=== PATIENT | female | born 1975 | race Caucasian/White ===

== ENCOUNTER 2017-04-04 22:48 | Emergency (ER) | payer OTHER ==
[2017-04-04 23:02] VITALS: BP 136/73
[2017-04-05 00:04] LABS: BILIRUBIN,URINE NEGATIVE (NEGATIVE); GLUCOSE, URINE (UA) >=1000 mg/dL (NEGATIVE); KETONES,URINE (UA) NEGATIVE (NEGATIVE); LEUKOCYTE ESTERASE, URINE NEGATIVE (NEGATIVE); NITRITE,URINE NEGATIVE (NEGATIVE); OCCULT BLOOD,URINE MODERATE (NEGATIVE); PH,URINE 6.5 PH (5.0-7.5); PROTEIN,URINE NEGATIVE (NEGATIVE); UROBILINOGEN,URINE 0.2 (NORMAL) E.U./dL (NORMAL)
[2017-04-05 00:06] LABS: CLARITY,URINE HAZY (CLEAR); HCG UR QUAL NEGATIVE
[2017-04-05] MEDS ORDERED: ONDANSETRON ODT 4 MG TABLET TL STA (00:13)
[2017-04-05] MEDS ORDERED: PHENAZOPYRIDINE 100 MG TABLET PO STA (00:13)
[2017-04-05] MEDS ORDERED: SULFAMETH/TRIMETH DS 800/160 MG TABLET PO STA (00:13)
[2017-04-05] MEDS ORDERED: ACETAMINOPHEN 500 MG TABLET PO STA (00:13)
[2017-04-05 00:14] LABS: BACTERIA,URINE Few /HPF (None Seen); SQUAMOUS EPITHELIAL CELL,UR RARE Squamous (<= Few)
--- NOTE | 2017-04-05 00:14 | ED Physician Documentation ---
PD HPI FEMALE - Stated complaint Stated Complaint: ABD/BACK PAIN - Chief complaint Chief Complaint: Abd Pain - History obtained from History obtained from: Patient - History of Present Illness Timing - onset: Yesterday Timing - details: Gradual onset, Still present Associated symptoms: Back pain, Dysuria, Urinary frequency. No: Fever Similar symptoms before: Treatment Recently seen: Not recently seen - Additional information Additional information: Patient is a 42 year old female with a history of diabetes who is presenting to the emergency department for dysuria, increased frequency and back pain. patient states that the symptoms have been developing over the last couple of days. patient states that she does not know who her assigned doctor is and that it would be a couple of weeks before she could get an appointment so she came in for evaluation. Review of Systems Constitutional: denies: Fever, Chills Eyes: reports: Reviewed and negative Ears: reports: Reviewed and negative Nose: reports: Reviewed and negative Throat: reports: Sore throat Cardiac: reports: Reviewed and negative GI: reports: Abdominal Pain, Nausea. 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/Adenoidectomy - Present Medications Home Medications: Ambulatory Orders Medication Instructions Recorded Confirmed Fluticasone [Flonase] 1 sprays CHRIS DAILY #1 bottle 07/22/13 09/03/14 Insulin 70/30 Human [NovoLIN] 15 units SUBQ BID 07/22/13 09/03/14 Insulin NPH Human Isophane 20 units SUBQ BID 07/22/13 09/03/14 [Humulin N Kwikpen] Tobramycin/Dexamethasone [Tobradex 1 drop OP QID #1 bot 09/03/14 Eye Drops] Ondansetron Odt [Zofran] 4 mg TL Q6H PRN #14 tablet 04/05/17 Phenazopyridine HCl [Pyridium] 200 mg PO TID PRN #6 tablet 04/05/17 Sulfamethox/Trimeth 800/160 1 each PO BID #14 tablet 04/05/17 [Bactrim Ds 800/160] - Allergies Allergies/Adverse Reactions: Allergies Allergy/AdvReac Type Severity Reaction Status Date / Time meperidine HCl * Allergy Nausea Verified 07/22/13 18:36 [From Demerol] - Social History Does the pt smoke?: No Smoking Status: Never smoker Does the pt drink ETOH?: Yes Does the pt have substance abuse?: No - Immunizations Immunizations are current?: Yes - POLST Patient has POLST: No PD ED PE NORMAL - Vitals Vital signs reviewed: Yes - General General: Alert and oriented X 3, No acute distress - HEENT HEENT: Atraumatic, Moist mucous membranes - Neck Neck: Supple, no meningeal sign - Cardiac Cardiac: RRR, No murmur - Respiratory Respiratory: No respiratory distress - Abdomen Abdomen: Soft, Non tender, Non distended - Derm Derm: Normal color, Warm and dry, No rash - Extremities Extremities: No deformity - Neuro Neuro: Alert and oriented X 3, No motor deficit, Normal speech Results - Vitals Vitals: Vital Signs - 24 hr 04/04/17 22:57 Temperature 36.3 C L Heart Rate 95 Respiratory 16 Rate Blood Pressure 136/73 H O2 Saturation 98 Oxygen O2 Source Room air - Labs Labs: Laboratory Tests 04/04/17 23:16 Urine Color YELLOW Urine Clarity HAZY Urine pH 6.5 Ur Specific [place] 1.015 Urine Protein NEGATIVE Urine Glucose (UA) >=1000 H Urine Ketones NEGATIVE Urine Occult Blood MODERATE H Urine Nitrite NEGATIVE Urine Bilirubin NEGATIVE Urine Urobilinogen 0.2 (NORMAL) Ur Leukocyte Esterase NEGATIVE Urine RBC 6-10 H Urine WBC 11-25 H Ur Squamous Epith Cells RARE Squamous Urine Bacteria Few Ur Microscopic Review INDICATED Urine Culture Comments INDICATED Urine HCG, Qual NEGATIVE PD MEDICAL DECISION MAKING - ED course Complexity details: reviewed old records, reviewed results, re-evaluated patient , considered differential, d/w patient ED course: Patient was seen and examined at bedside. Patient's urine was collected and consistent with a uti. Patient was treated with tylenol, pyridium and bactrim. patient was able to tolerate PO without any difficulty and was appropriate for outpatient treatment. patient was stable for discharge. Departure - Departure Disposition: 01 Home, Self Care Clinical Impression: Urinary tract infection Condition: Good Instructions: ED UTI Cystitis Female Follow-Up: primary,care provider [Other] - As Needed Prescriptions: Ondansetron Odt [Zofran] 4 mg TL Q6H PRN #14 tablet PRN Reason: Nausea / Vomiting Phenazopyridine HCl [Pyridium] 200 mg PO TID PRN #6 tablet PRN Reason: dysuria Sulfamethox/Trimeth 800/160 [Bactrim Ds 800/160] 1 each PO BID #14 tablet Comments: Your symptoms today are being caused by a urinary tract infection. You had your first dose of antibiotics tonight and will need to be on them for the next week. You should stay well hydrated. You should follow up with your pmd if your symptoms persist. You may return to the emergency department at any time for new, worsening or uncontrollable symptoms. Discharge Date/Time: 04/05/17 00:26
== END 2017-04-05 00:26 | disposition home or self-care (01) ==
LOC: ED 22:48
DX: N39.0 Urinary tract infection, site not specified (principal); E11.9 Type 2 diabetes mellitus without complications; Z79.4 Long term (current) use of insulin
CPT/HCPCS: 81001; 81025; 87077; 87086; 87181; 99283; A9270; Q0162; 81003

== ENCOUNTER 2018-08-20 10:13 | Emergency (ER) | payer OTHER ==
[2018-08-20 10:20] VITALS: BP 124/84
--- NOTE | 2018-08-20 10:29 | ED Physician Documentation ---
History of Present Illness - Stated complaint Stated Complaint: UTI symptoms - Chief complaint Chief Complaint: UTI - History obtained from History obtained from: Patient - Additonal information Additional information: Patient is [id number] female with history of insulin-dependent diabetes presenting with concerns for possible UTI. Patient reports she has had UTIs in the past and today's symptoms are similar, specifically dysuria, nausea without vomiting, and diarrhea. Patient denies hematuria, fever, abdominal pain, back pain, or other vaginal complaints. Patient does note that her sugars were elevated earlier today which she feels is reflective of a possible infection. No other improving or worsening factors noted. Review of Systems Constitutional: denies: Fever GI: reports: Nausea. 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: Tonsil/Adenoidectomy - Present Medications Home Medications: Ambulatory Orders Medication Instructions Recorded Confirmed Fluticasone [Flonase] 1 sprays CHRIS DAILY #1 bottle 07/22/13 09/03/14 Insulin 70/30 Human [NovoLIN] 15 units SUBQ BID 07/22/13 09/03/14 Insulin NPH Human Isophane 20 units SUBQ BID 07/22/13 09/03/14 [Humulin N Kwikpen] Tobramycin/Dexamethasone [Tobradex 1 drop OP QID #1 bot 09/03/14 Eye Drops] Ondansetron Odt [Zofran] 4 mg TL Q6H PRN #14 tablet 04/05/17 Phenazopyridine HCl [Pyridium] 200 mg PO TID PRN #6 tablet 04/05/17 Sulfamethox/Trimeth 800/160 1 each PO BID #14 tablet 04/05/17 [Bactrim Ds 800/160] Ciprofloxacin HCl [Cipro] 500 mg PO BID #14 tablet 08/20/18 - Allergies Allergies/Adverse Reactions: Allergies Allergy/AdvReac Type Severity Reaction Status Date / Time meperidine HCl * Allergy Nausea Verified 08/20/18 10:20 [From Demerol] - Social History Does the pt smoke?: No Smoking Status: Never smoker Does the pt drink ETOH?: Yes Does the pt have substance abuse?: No - Immunizations Immunizations are current?: Yes - POLST Patient has POLST: No PD ED PE NORMAL - Vitals Vital signs reviewed: Yes - General General: Alert and oriented X 3, No acute distress, Well developed/nourished - Respiratory Respiratory: No respiratory distress - Abdomen Abdomen: Soft, Non tender, Non distended - Back Back: No CVA TTP - Derm Derm: Normal color, Warm and dry, No rash - Extremities Extremities: No deformity, No tenderness to palpate - Neuro Neuro: Alert and oriented X 3, No motor deficit, No sensory deficit - Psych Psych: Normal mood, Normal affect Results - Vitals Vitals: Vital Signs - 24 hr 08/20/18 10:19 Temperature 36.7 C Heart Rate 100 Respiratory 17 Rate Blood Pressure 124/84 H O2 Saturation 100 Oxygen O2 Source Room air - Labs Labs: Laboratory Tests 08/20/18 08/20/18 10:24 10:25 Urine Color YELLOW Urine Clarity HAZY Urine pH 5.5 Ur Specific [place] <1.005 <=1.005 Urine Protein NEGATIVE Urine Glucose (UA) >=1000 H Urine Ketones 40 H Urine Occult Blood TRACE-INTA Urine Nitrite NEGATIVE Urine Bilirubin NEGATIVE Urine Urobilinogen 0.2 (NORMAL) Ur Leukocyte Esterase TRACE H Urine RBC 3 Urine WBC >25 H Urine WBC Clumps PRESENT Ur Squamous Epith Cells RARE Squamous Urine Bacteria Moderate H Ur Microscopic Review INDICATED Urine Culture Comments INDICATED Urine HCG, Qual NEGATIVE PD MEDICAL DECISION MAKING - ED course Complexity details: reviewed results, considered differential, d/w patient ED course: Patient presenting with UTI symptoms. Do not find evidence on exam or per patient report concerns for nephrolithiasis, pyelonephritis, or other intra-abdominal pathology. Also have low suspicion for pelvic pathology, but considered. Urinalysis obtained which did reflect evidence of infection and patient started on oral antibiotics. Provided information on strict return precautions, other supportive cares, and follow-up. Patient voiced understanding and is comfortable with discharge plan. Departure - Departure Disposition: 01 Home, Self Care Clinical Impression: Cystitis Urinary tract infection Qualifiers: Urinary tract infection type: acute cystitis Hematuria presence: without hematuria Qualified Code(s): N30.00 - Acute cystitis without hematuria Instructions: ED UTI Cystitis Female Follow-Up: your,doctor [Other] - Within 3 Days Prescriptions: Ciprofloxacin HCl [Cipro] 500 mg PO BID #14 tablet Comments: Please continue home medications as previously instructed. Please use antibiotics as prescribed to treat bladder infection. Recommend hydration, healthy diet, and follow-up with your primary care physician in next 2 to 3 days. Return to ED sooner if you experience worsening symptoms or have other concerns.
[2018-08-20 10:34] LABS: BILIRUBIN,URINE NEGATIVE (NEGATIVE); GLUCOSE, URINE (UA) >=1000 mg/dL (NEGATIVE); KETONES,URINE (UA) 40 mg/dL (NEGATIVE); LEUKOCYTE ESTERASE, URINE TRACE (NEGATIVE); NITRITE,URINE NEGATIVE (NEGATIVE); OCCULT BLOOD,URINE TRACE-INTA (NEGATIVE); PH,URINE 5.5 PH (5.0-7.5); PROTEIN,URINE NEGATIVE (NEGATIVE); UROBILINOGEN,URINE 0.2 (NORMAL) E.U./dL (NORMAL)
[2018-08-20 10:36] LABS: CLARITY,URINE HAZY (CLEAR)
[2018-08-20 10:45] LABS: HCG UR QUAL NEGATIVE
[2018-08-20 10:56] LABS: BACTERIA,URINE Moderate /HPF (None Seen); RBC,URINE 3 /HPF (0-5); SQUAMOUS EPITHELIAL CELL,UR RARE Squamous (<= Few); WBC CLUMPS,URINE PRESENT
== END 2018-08-20 11:30 | disposition home or self-care (01) ==
LOC: ED 10:13
DX: N30.00 Acute cystitis without hematuria (principal); E11.9 Type 2 diabetes mellitus without complications; Z79.4 Long term (current) use of insulin
CPT/HCPCS: 81001; 81003; 81025; 87086; 87181; 99283

== ENCOUNTER 2020-01-07 14:30 | Outpatient (CLI) | payer OTHER | END 2020-01-07 14:31 | disposition short-term general hospital (02) | LOC: EMS 14:30 | PROVIDERS: ATTEND Surgery | DX: R41.82 Altered mental status, unspecified (principal); R73.09 Other abnormal glucose | CPT/HCPCS: A0425; A0427 ==

== ENCOUNTER 2020-01-08 11:46 | Emergency (ER) | payer OTHER ==
[2020-01-08 12:23] LABS: BASOPHILS # (AUTO) 0.1 10^3/uL (0.0-0.1); BASOPHILS % (AUTO) 0.4 %; EOSINOPHILS % (AUTO) 0.1 %; HGB - HEMOGLOBIN 11.3 g/dL (12.0-16.0); MEAN CORPUSCULAR HEMOGLOBIN 26.5 pg (27.0-31.0); MEAN CORPUSCULAR HGB CONC 30.6 g/dL (32.0-36.0); MEAN CORPUSCULAR VOLUME 86.4 fL (81.0-99.0); MEAN PLATELET VOLUME 10.2 fL (7.9-10.8); MONOCYTES # (AUTO) 0.5 10^3/uL (0.0-1.0); MONOCYTES % (AUTO) 3.6 %; NEUTROPHILS % (AUTO) 88.4 %; PLT - PLATELET COUNT 291 10^3/uL (130-450); RED BLOOD COUNT 4.27 10^6/uL (4.20-5.40); RED CELL DISTRIBUTION WIDTH 22.8 % (12.0-15.0); WHITE BLOOD COUNT 13.6 x10^3/uL (4.8-10.8)
[2020-01-08 12:36] LABS: ALBUMIN 3.7 g/dL (3.2-5.5); ALBUMIN/GLOBULIN RATIO 1.1 (1.0-2.2); ALKALINE PHOSPHATASE 55 IU/L (42-121); ALT ALANINE AMINOTRANSFERASE 22 IU/L (10-60); AST ASPARTATE AMINOTRANSFERASE 15 IU/L (10-42); BUN - BLOOD UREA NITROGEN 19 mg/dL (6-20); CALCIUM 9.3 mg/dL (8.5-10.3); CARBON DIOXIDE - CO2 27 mmol/L (21-32); CHLORIDE 101 mmol/L (101-111); CREATININE 0.7 mg/dL (0.4-1.0); GLUCOSE 361 mg/dL (70-100); LIPASE 18 U/L (22-51); SODIUM 140 mmol/L (135-145)
[2020-01-08 12:37] LABS: BILIRUBIN,URINE NEGATIVE (NEGATIVE); GLUCOSE, URINE (UA) 500 mg/dL (NEGATIVE); KETONES,URINE (UA) >=80 mg/dL (NEGATIVE); LEUKOCYTE ESTERASE, URINE NEGATIVE (NEGATIVE); NITRITE,URINE NEGATIVE (NEGATIVE); OCCULT BLOOD,URINE NEGATIVE (NEGATIVE); PH,URINE 6.5 PH (5.0-7.5); PROTEIN,URINE NEGATIVE (NEGATIVE); UROBILINOGEN,URINE 1 (NORMAL) E.U./dL (NORMAL)
[2020-01-08 12:37] LABS: RBC MORPHOLOGY (MULTIPLE) 4+ ANISOCYTOSIS (NORMAL)
[2020-01-08 12:38] LABS: KETONES, SERUM (ACETEST) NEGATIVE (NEGATIVE)
[2020-01-08 12:38] LABS: CLARITY,URINE CLEAR (CLEAR)
[2020-01-08 12:39] LABS: HCG UR QUAL NEGATIVE
[2020-01-08] MEDS ORDERED: SODIUM CHLORIDE 0.9% 1,000 ML IV STA ×2 (12:40→12:41)
[2020-01-08] MEDS ORDERED: ONDANSETRON 4 MG/2 ML VIAL IVP STA (12:40)
--- NOTE | 2020-01-08 12:45 | ED Physician Documentation ---
History of Present Illness - Stated complaint Stated Complaint: VOMITING - Chief complaint Chief Complaint: Abd Pain - History obtained from History obtained from: Patient - Additonal information Additional information: 44-year-old insulin dependent diabetic presents to the emergency department with 3 days of vomiting. She also began to have some pain in her suprapubic region this a.m. though she denies dysuria. She has no urinary urgency or frequency. Due to number of reasons she has not seen a primary care provider for about 6 years. She is currently managing her diabetes at home using [id number] insulin Novolin R and novel and and. She is typically taking 15 units of Novolin R in the a.m. and 20 units of Novolin in every a.m. Yesterday she took her typical doses of insulin but then vomited and was unable to keep anything down. Unfortunately she had a severe hypoglycemic event and became unconscious. EMS was summoned and her blood sugar was 17mg/dl. She was transported to the [place] ED and ultimately id. This a.m. she began to have the suprapubic pain and has had vomited about 12 times since she woke up. Her blood glucose was over 500 this morning and she did give herself 10 units of regular insulin but none of the long-acting. Blood glucose is 350 here. She is alert and mentating normally Review of Systems Constitutional: denies: Fever, Chills Eyes: reports: Reviewed and negative Ears: reports: Reviewed and negative Nose: reports: Reviewed and negative Throat: reports: Reviewed and negative Cardiac: reports: Reviewed and negative Respiratory: reports: Reviewed and negative GI: reports: Abdominal Pain, Nausea, Vomiting. denies: Constipation, Diarrhea : reports: Dysuria. 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 HEENT: Tonsil/Adenoidectomy - Present Medications Home Medications: Ambulatory Orders Medication Instructions Recorded Confirmed Fluticasone [Flonase] 1 sprays CHRIS DAILY #1 bottle 07/22/13 09/03/14 Insulin 70/30 Human [NovoLIN] 15 units SUBQ BID 07/22/13 09/03/14 Insulin NPH Human Isophane 20 units SUBQ BID 07/22/13 09/03/14 [Humulin N Kwikpen] Tobramycin/Dexamethasone [Tobradex 1 drop OP QID #1 bot 09/03/14 Eye Drops] Ondansetron Odt [Zofran] 4 mg TL Q6H PRN #14 tablet 04/05/17 Phenazopyridine HCl [Pyridium] 200 mg PO TID PRN #6 tablet 04/05/17 Sulfamethox/Trimeth 800/160 1 each PO BID #14 tablet 04/05/17 [Bactrim Ds 800/160] Ciprofloxacin HCl [Cipro] 500 mg PO BID #14 tablet 08/20/18 Cephalexin [Keflex] 500 mg PO BID #14 capsule 01/08/20 Metoclopramide [Reglan] 10 mg PO Q6H PRN #20 tablet 01/08/20 - Allergies Allergies/Adverse Reactions: Allergies Allergy/AdvReac Type Severity Reaction Status Date / Time meperidine HCl * Allergy Nausea Verified 01/08/20 11:57 [From Demerol] - Social History Does the pt smoke?: No Smoking Status: Never smoker Does the pt drink ETOH?: Yes Does the pt have substance abuse?: No - Immunizations Immunizations are current?: Yes - POLST Patient has POLST: No PD ED PE EXPANDED - General General: Alert, No acute distress - HEENT HEENT: PERRL, EOMI - Neck Neck: Supple w/out meningeal sx, No tenderness. No: Adenopathy - Cardiac Cardiac: Regular Rate, Regular Rhythm, Radial strong equal, Pedal strong equal, Cap refill < 2 sec - Respiratory Respiratory: Clear to ausultation osmar. No: Distress, Labored - Abdomen Abdomen: Normal Bowel sounds, Suprapubic (mild suprapubic ttp withotu rebound guarding; no flank, CVA tenderness. negative murphys, mcburney). No: Rebound, Guarding - Back Back: Normal exam. No: Vertebral tenderness, Soft tissue tenderness - Extremities Extremities: Normal - Neuro Neuro: Alert and Oriented X 3 - GCS Eye Opening: Spontaneous Motor: Obeys Commands Verbal: Oriented Total: 15 Results - Vitals Vitals: Vital Signs - 24 hr 01/08/20 01/08/20 11:53 14:05 Temperature 36 C L Heart Rate 89 93 Respiratory 18 18 Rate Blood Pressure 156/79 H 161/76 H O2 Saturation 100 99 Oxygen O2 Source Room air - Labs Labs: Laboratory Tests 01/08/20 01/08/20 01/08/20 12:00 12:18 12:18 WBC 13.6 H RBC 4.27 Hgb 11.3 L Hct 36.9 L MCV 86.4 MCH 26.5 L MCHC 30.6 L RDW 22.8 H Plt Count 291 MPV 10.2 Neut # (Auto) 12.0 H Lymph # (Auto) 1.0 L Hayes # (Auto) 0.5 Eos # (Auto) 0.0 Baso # (Auto) 0.1 Absolute Nucleated RBC 0.00 Nucleated RBC % 0.0 Manual Slide Review Indicated RBC Morph Micro Appear 4+ ANISOCYTOSIS Sodium 140 Potassium 4.0 Chloride 101 Carbon Dioxide 27 Anion Gap 12.0 BUN 19 Creatinine 0.7 Estimated GFR (MDRD) 91 Glucose 361 H POC Whole Bld Glucose 350 H Calcium 9.3 Total Bilirubin 1.0 AST 15 ALT 22 Alkaline Phosphatase 55 Total Protein 7.0 Albumin 3.7 Globulin 3.3 Albumin/Globulin Ratio 1.1 Lipase 18 L Urine Color Urine Clarity Urine pH Ur Specific [place] Urine Protein Urine Glucose (UA) Urine Ketones Urine Occult Blood Urine Nitrite Urine Bilirubin Urine Urobilinogen Ur Leukocyte Esterase Ur Microscopic Review Urine Culture Comments Urine HCG, Qual Serum Ketones NEGATIVE 01/08/20 01/08/20 12:25 12:25 WBC RBC Hgb Hct MCV MCH MCHC RDW Plt Count MPV Neut # (Auto) Lymph # (Auto) Hayes # (Auto) Eos # (Auto) Baso # (Auto) Absolute Nucleated RBC Nucleated RBC % Manual Slide Review RBC Morph Micro Appear Sodium Potassium Chloride Carbon Dioxide Anion Gap BUN Creatinine Estimated GFR (MDRD) Glucose POC Whole Bld Glucose Calcium Total Bilirubin AST ALT Alkaline Phosphatase Total Protein Albumin Globulin Albumin/Globulin Ratio Lipase Urine Color YELLOW Urine Clarity CLEAR Urine pH 6.5 Ur Specific [place] 1.015 1.015 Urine Protein NEGATIVE Urine Glucose (UA) 500 H Urine Ketones >=80 H Urine Occult Blood NEGATIVE Urine Nitrite NEGATIVE Urine Bilirubin NEGATIVE Urine Urobilinogen 1 (NORMAL) Ur Leukocyte Esterase NEGATIVE Ur Microscopic Review NOT INDICATED Urine Culture Comments NOT INDICATED Urine HCG, Qual NEGATIVE Serum Ketones - Rads (name of study) CT abd Radiology: Final report received (CT abdomen and pelvis without acute abnormalities. No abnormalities identified to explain the patient's symptoms.) CXR Radiology: Final report received (No acute cardiopulmonary process) PD MEDICAL DECISION MAKING - ED course Complexity details: reviewed results, re-evaluated patient, considered differential, d/w patient, d/w family ED course: 44-year-old insulin-dependent diabetic presents theEmergency department for evaluation of uncontrolled vomiting that began this a.m. with some associated suprapubic discomfort. She unfortunately has not seen a primary care provider for nearly 6 years. She is managing her blood sugars at home with the insulin she is able to obtain [id number] both Novolin and and Novolin R. She unfortunately had a hypoglycemic event yesterday that brought her to the emergency department in [place]. Her urine today shows no markers of infection. Chest x-ray is unremarkable for pneumonia. She has no cough or fevers. Serum ketones are negative. She is not in DKA. A thorough skin infection reveals no signs of cellulitis. She had no upper abdominal tenderness, no liver function test elevations and a normal lipase. Her exam is not consistent with biliary colic or acute pancreatitis. CT of the abdomen and pelvis was unremarkable. While here in the emergency department she was given 2 L of fluid as well as multiple antiemetics. Reglan appeared to control her nausea the best. Following the Reglan she was able to tolerate sips of clear liquids and eat some simple crackers and peanut butter. She will be discharged home with a prescription for Reglan. She is concerned that she may still have a urinary tract infection that is too early to see on labs. I will prescribe some Keflex to be taken only if her vomiting does not improve or she develops dysuria. I have advised her to have very close follow-up with [facility]. My recommendation is that she present tomorrow to be seen. It is imperative that she get established with a primary care provider to help manage her diabetes in the long-term. We discussed that the etiology of her uncontrolled vomiting may be an occult urinary tract infection, diabetic cyclic vomiting syndrome or gastroparesis. Departure - Departure Disposition: 01 Home, Self Care Clinical Impression: Poorly controlled diabetes mellitus Vomiting Qualifiers: Vomiting type: unspecified Vomiting Intractability: non-intractable Nausea presence: with nausea Qualified Code(s): R11.2 - Nausea with vomiting, unspecified Condition: Stable Record reviewed to determine appropriate education?: Yes Instructions: ED Diabetic Gastroparesis Prescriptions: Cephalexin [Keflex] 500 mg PO BID #14 capsule Metoclopramide [Reglan] 10 mg PO Q6H PRN #20 tablet PRN Reason: Nausea / Vomiting Comments: Gretchen I hope that you are feeling better soon. Your chest x-ray, CAT scan are all essentially unremarkable. Your urine shows no signs of infection. You are not in DKA. I suspect that your vomiting may be related to poorly controlled diabetes, you may be developing a cyclic vomiting syndrome or gastroparesis. Please go to [facility] tomorrow to be seen in follow-up. Use your insulin at home very cautiously. Until you are tolerating a regular diet I would avoid use of the long acting insulin. I would like you to check your blood sugars 3 times a day. Until you are feeling better you likely need to use less regular insulin. If you have blood sugars less than 70 or higher than 450 please come immediately to the emergency department I have prescribed some Reglan to help with your nausea and vomiting. Please take every 6 hours for the next 2 to 3 days. If you are unable to keep any food or liquid down develop high fever, have suddenly severe abdominal pain or feel that your symptoms are not improving despite these medications at home please return to the emergency department. Though it does not appear that you have a infection in your urine I have prescribed some Keflex. Please do not take this antibiotic unless you develop pain when you pee or you experience more suprapubic discomfort.
[2020-01-08] MEDS ORDERED: PROCHLORPERAZINE 10 MG/2 ML VIAL IVP STA (13:20)
[2020-01-08] MEDS ORDERED: IOVERSOL 320 100 ML VIAL IVP ONE ×2 (13:42→16:14)
--- NOTE | 2020-01-08 14:14 | CT Report ---
PROCEDURE: Abdomen/Pelvis W INDICATIONS: lower abdominal pain; vomiting CONTRAST: IV CONTRAST: Optiray 320 ml: 100 PO CONTRAST: *NO PO CONTRAST TECHNIQUE: After the administration of weight appropriate dose of intravenous contrast, 5 mm thick sections acqu ired from the diaphragms to the symphysis. 5 mm thick coronal and sagittal reformats were acquired. For radiation dose reduction, the following was used: automated exposure control, adjustment of mA and/or kV according to patient size. COMPARISON: None. FINDINGS: Image quality: Excellent. ABDOMEN: Lung bases: Lung bases are clear. Heart size is normal. Solid organs: Liver and spleen are normal in size and enhancement. Small area of focal fatty infiltr ation near the falciform ligament. Gallbladder is unremarkable. Biliary system is non dilated. Carroll creas enhances normally. No adrenal nodules. Kidneys demonstrate normal size and enhancement, witho ut hydronephrosis. Peritoneum and bowel: Bowel loops demonstrate normal wall thickness and caliber. No free fluid or a ir. Nodes and vessels: No retroperitoneal or mesenteric adenopathy by size criteria. Aorta and inferior vena cava are normal in size. Miscellaneous: No ventral hernias. PELVIS: Genitourinary: Bladder wall thickness is normal. Reproductive organs appear unremarkable as imaged. Miscellaneous: No inguinal hernias or adenopathy. Bones: No suspicious bony lesions. No vertebral body compression fractures. IMPRESSION: CT abdomen and pelvis without acute abnormalities. No abnormalities identified to explain patient's symptoms. If there are clinical findings/symptoms wh ich may localize to a pelvic source, consider further evaluation with pelvic ultrasound. Reviewed by: Gigi Arredondo MD on 01/08/2020 1:13 PM [facility] Approved by: Gigi Arredondo MD on 01/08/2020 1:13 PM [facility] Station ID: [id number]
[2020-01-08] MEDS ORDERED: METOCLOPRAMIDE 10 MG/2 ML VIAL IVP STA (15:11)
--- NOTE | 2020-01-08 15:27 | XRAY Report ---
PROCEDURE: Chest 1 View X-Ray INDICATIONS: Vomiting TECHNIQUE: One view of the chest was acquired. COMPARISON: None FINDINGS: Surgical changes and devices: None. Lungs and pleura: No pleural effusions or pneumothorax. Lungs are clear. Mediastinum: Mediastinal contours appear normal. Heart size is normal. Bones and chest wall: No suspicious bony lesions. Overlying soft tissues appear unremarkable. IMPRESSION: No acute cardiopulmonary process demonstrated radiographically. Reviewed by: Zane Roche MD on 01/08/2020 3:26 PM PST Approved by: Zane Roche MD on 01/08/2020 3:26 PM PST Station ID: [id number]
[2020-01-08 16:15] VITALS: BP 138/71
== END 2020-01-08 16:20 | disposition home or self-care (01) ==
LOC: ED 11:46
DX: R11.2 Nausea with vomiting, unspecified (principal); E11.649 Type 2 diabetes mellitus with hypoglycemia without coma; Z79.4 Long term (current) use of insulin
CPT/HCPCS: 36415; 71045; 74177; 80053; 81003; 81025; 82009; 83690; 85025; 96374; 96375; 99284; J2765; Q9967; 81001; 87086